=== PATIENT | female | born 1975 | race Caucasian/White ===

== ENCOUNTER 2017-05-29 09:11 | Emergency (ER) | payer OTHER ==
[~2017-05-29] VITALS: Ht 180.3 cm; Wt 140.6 kg
[2017-05-29 09:35] VITALS: BP_SYST 164
[2017-05-29] MEDS ORDERED: FLUORESCEIN SODIUM 1 MG OPHTHALMIC STRIP OP ONE (09:57)
[2017-05-29] MEDS ORDERED: BALANCED SALT IRRIG SOLN 15 ML IO ONE (09:57)
[2017-05-29] MEDS ORDERED: TETRACAINE HCL 0.5% OPHTHALMIC DROPS 15 ML OP ONE (09:57)
[2017-05-29 10:30] VITALS: BP_SYST 142
== END 2017-05-29 10:30 | disposition home or self-care (01) ==
LOC: SED 09:11
DX: S05.01XA Injury of conjunctiva and corneal abrasion without foreign body, right eye, initial encounter (principal); I10 Essential (primary) hypertension; Z90.49 Acquired absence of other specified parts of digestive tract; Z85.850 Personal history of malignant neoplasm of thyroid; X58.XXXA Exposure to other specified factors, initial encounter; Y93.89 Activity, other specified; Y92.89 Other specified places as the place of occurrence of the external cause; Y99.8 Other external cause status
CPT/HCPCS: 99283

== ENCOUNTER 2018-03-01 02:18 | Emergency (ER) | payer OTHER ==
[~2018-03-01] VITALS: Ht 180.3 cm; Wt 142.9 kg
[2018-03-01 02:40] VITALS: BP_SYST 154
[2018-03-01 03:20] VITALS: BP_SYST 147
== END 2018-03-01 03:20 | disposition home or self-care (01) ==
LOC: SED 02:18
DX: S90.812A Abrasion, left foot, initial encounter (principal); I10 Essential (primary) hypertension; X58.XXXA Exposure to other specified factors, initial encounter; Y93.89 Activity, other specified; Y92.89 Other specified places as the place of occurrence of the external cause; Y99.8 Other external cause status
CPT/HCPCS: 99282

== ENCOUNTER 2020-07-06 16:24 | Emergency (ER) | payer OTHER ==
[~2020-07-06] VITALS: Ht 180.3 cm; Wt 154.2 kg
[2020-07-06 16:25] VITALS: BP_SYST 167
[2020-07-06 18:28] LABS: PROTHROMBIN TIME 10.2 SECS (9.5-12.5)
[2020-07-06 18:44] LABS: POTASSIUM 3.8 mmol/L (3.5-5.1)
[2020-07-06 18:45] LABS: ALBUMIN 3.8 g/dL (3.4-4.8); CREATININE 1.32 mg/dL (0.55-1.30); TOTAL BILIRUBIN 0.4 mg/dL (0.0-1.0)
[2020-07-06 18:46] LABS: URIC ACID 7.8 mg/dL (2.4-7.0)
[2020-07-06 19:05] LABS: C-REACTIVE PROTEIN QUANT 10.5 mg/dL (0-0.5); CALCIUM 6.4 mg/dL (8.4-11.0)
[2020-07-06] MEDS ORDERED: IBUP-1969 PO (19:16)
[2020-07-06 19:28] VITALS: BP_SYST 167
[2020-07-06 20:01] LABS: BASOPHILS # (AUTO) 0.2 K/uL (0.0-0.2); BASOPHILS % (AUTO) 1.8 % (0.0-2.0); EOSINOPHILS # (AUTO) 0.4 K/uL (0.0-0.4); HEMATOCRIT 31.8 % (36-48); HEMOGLOBIN 10.5 g/dL (12.0-16.0); LYMPHOCYTES # (AUTO) 1.1 K/uL (1.0-5.5); LYMPHOCYTES % (AUTO) 9.6 % (20.5-51.5); MEAN CORPUSCULAR HEMOGLOBIN 27 pg (27-31); MEAN CORPUSCULAR HGB CONC 33 % (32-36); MEAN CORPUSCULAR VOLUME 81 fL (79.0-98.0); MONOCYTES # (AUTO) 0.5 K/uL (0.0-1.0); MONOCYTES % (AUTO) 4.7 % (1.7-9.3); NEUTROPHILS # (AUTO) 8.7 K/uL (1.8-7.7); NEUTROPHILS % (AUTO) 79.9 % (40.0-70.0); PLATELET COUNT (AUTO) 427 K/uL (130-430); RED BLOOD CELL COUNT(AUTO) 3.91 MIL/uL (4.2-6.2); RED CELL DISTRIBUTION WIDTH 19.2 % (9.0-15.0); WHITE BLOOD COUNT (AUTO) 10.9 K/uL (4.8-10.8)
[2020-07-06 20:36] LABS: ERYTHROCYTE SEDIMENTATION RATE 92 MM/HR (0-20)
== END 2020-07-06 19:28 | disposition home or self-care (01) ==
LOC: SED 16:24
DX: M65.28 Calcific tendinitis, other site (principal); I10 Essential (primary) hypertension; R73.9 Hyperglycemia, unspecified; Z85.3 Personal history of malignant neoplasm of breast
CPT/HCPCS: 36415; 73030; 80053; 84550-TC; 84703; 85025; 85610-TC; 85651-TC; 85730-TC; 86140; 99284

== ENCOUNTER 2020-11-24 14:20 | Emergency (ER) | payer OTHER ==
[~2020-11-24] VITALS: Ht 180.3 cm; Wt 138.3 kg
[~2020-11-24 14:20] MED LIST: IBUP-1969 PO
[2020-11-24 14:32] VITALS: BP_SYST 166
[2020-11-24 15:16] LABS: BILIRUBIN,URINE NEGATIVE (NEGATIVE); BLOOD, URINE 3+ (NEGATIVE); COLOR,URINE YELLOW (YELLOW); GLUCOSE,URINE NEGATIVE (NEGATIVE); KETONES,URINE NEGATIVE (NEGATIVE); LEUKOCYTE ESTERASE ,URINE NEGATIVE (NEGATIVE); NITRITE, URINE NEGATIVE (NEGATIVE); PROTEIN URINE 2+ (NEGATIVE); UROBILINOGEN,URINE 0.2 (0.2-1.0)
[2020-11-24 15:22] LABS: CREATININE 1.28 mg/dL (0.55-1.30); POTASSIUM 3.5 mmol/L (3.5-5.1)
[2020-11-24 15:26] LABS: BACTERIA,URINE RARE /HPF (None Seen); CLARITY/URINE SLIGHTLY HAZY (CLEAR); WBC,URINE 0-3 /HPF (0-3)
[2020-11-24 15:31] LABS: BASOPHILS # (AUTO) 0.1 K/uL (0.0-0.2); BASOPHILS % (AUTO) 0.5 % (0.0-2.0); EOSINOPHILS # (AUTO) 0.1 K/uL (0.0-0.4); EOSINOPHILS % (AUTO) 1.1 % (0.0-4.0); HEMATOCRIT 28.4 % (36-48); HEMOGLOBIN 9.4 g/dL (12.0-16.0); LYMPHOCYTES # (AUTO) 1.5 K/uL (1.0-5.5); LYMPHOCYTES % (AUTO) 11.9 % (20.5-51.5); MEAN CORPUSCULAR HEMOGLOBIN 27 pg (27-31); MEAN CORPUSCULAR HGB CONC 33 % (32-36); MEAN CORPUSCULAR VOLUME 82 fL (79.0-98.0); NEUTROPHILS # (AUTO) 9.9 K/uL (1.8-7.7); NEUTROPHILS % (AUTO) 78.5 % (40.0-70.0); PLATELET COUNT (AUTO) 391 K/uL (130-430); RED BLOOD CELL COUNT(AUTO) 3.47 MIL/uL (4.2-6.2); RED CELL DISTRIBUTION WIDTH 19.2 % (9.0-15.0); WHITE BLOOD COUNT (AUTO) 12.7 K/uL (4.8-10.8)
[2020-11-24 15:32] LABS: ALBUMIN 3.3 g/dL (3.4-4.8); TOTAL BILIRUBIN 0.5 mg/dL (0.0-1.0)
[2020-11-24 15:34] LABS: CALCIUM 6.9 mg/dL (8.4-11.0)
[2020-11-24] MEDS ORDERED: CALCIUM GLUCONATE 1 GM in NS 100 ML IV ONE (15:45)
[2020-11-24] MEDS ORDERED: CALCIUM GLUCONATE 1 GM/10 ML VIAL ONE (16:08)
[2020-11-24 17:18] VITALS: BP_SYST 156
== END 2020-11-24 17:19 | disposition home or self-care (01) ==
LOC: SED 14:20
DX: E83.51 Hypocalcemia (principal); E03.9 Hypothyroidism, unspecified; R10.30 Lower abdominal pain, unspecified; Z85.850 Personal history of malignant neoplasm of thyroid
CPT/HCPCS: 36415; 74021; 76830; 76857; 80053; 81000; 81025; 83690; 83735; 83970; 84443; 85025; 96365; 99285; J0610

== ENCOUNTER 2020-11-27 17:41 | Emergency (ER) | payer OTHER ==
[~2020-11-27] VITALS: Ht 180.3 cm; Wt 136.5 kg
[2020-11-27 18:03] VITALS: BP_SYST 157
[2020-11-27 18:51] LABS: BASOPHILS # (AUTO) 0.1 K/uL (0.0-0.2); BASOPHILS % (AUTO) 0.9 % (0.0-2.0); EOSINOPHILS # (AUTO) 0.1 K/uL (0.0-0.4); EOSINOPHILS % (AUTO) 0.8 % (0.0-4.0); HEMATOCRIT 29.4 % (36-48); HEMOGLOBIN 9.6 g/dL (12.0-16.0); LYMPHOCYTES # (AUTO) 1.4 K/uL (1.0-5.5); LYMPHOCYTES % (AUTO) 10.1 % (20.5-51.5); MEAN CORPUSCULAR HEMOGLOBIN 27 pg (27-31); MEAN CORPUSCULAR HGB CONC 33 % (32-36); MEAN CORPUSCULAR VOLUME 82 fL (79.0-98.0); MONOCYTES % (AUTO) 7.3 % (1.7-9.3); NEUTROPHILS # (AUTO) 11.2 K/uL (1.8-7.7); NEUTROPHILS % (AUTO) 80.9 % (40.0-70.0); PLATELET COUNT (AUTO) 458 K/uL (130-430); RED CELL DISTRIBUTION WIDTH 18.9 % (9.0-15.0); WHITE BLOOD COUNT (AUTO) 13.9 K/uL (4.8-10.8)
[2020-11-27 19:03] LABS: INR 1.1 (0.8-1.2); PROTHROMBIN TIME 11.2 SECS (9.5-12.5)
[2020-11-27 19:07] LABS: C-REACTIVE PROTEIN QUANT < 0.2 mg/dL (0-0.5)
[2020-11-27 19:10] LABS: ANION GAP 12 (5-15); CHLORIDE 101 mmol/L (98-107); CREATININE 1.39 mg/dL (0.55-1.30); GLUCOSE 98 mg/dL (70-99); POTASSIUM 3.5 mmol/L (3.5-5.1); SODIUM SERUM 142 mmol/L (136-145); UREA NITROGEN, BLOOD 14 mg/dL (8-21)
[2020-11-27 19:12] LABS: CALCIUM 6.6 mg/dL (8.4-11.0)
[2020-11-27 19:18] LABS: ALANINE AMINOTRANSFERASE 34 U/L (12-78); ALBUMIN 3.4 g/dL (3.4-4.8); AMYLASE 23 U/L (0-100); ASPARTATE AMINOTRANSFERASE 26 U/L (10-37); FREE T4 (FREE THYROXINE) 0.9 ng/dl (0.8-1.5); LIPASE 93 U/L (73-393); THYROID STIMULATING HORMONE 19.36 uIu/mL (0.36-3.74); TOTAL BILIRUBIN 0.7 mg/dL (0.0-1.0)
[2020-11-27 19:50] LABS: BILIRUBIN,URINE 1+ (NEGATIVE); BLOOD, URINE 3+ (NEGATIVE); CLARITY/URINE CLEAR (CLEAR); COLOR,URINE YELLOW (YELLOW); GLUCOSE,URINE NEGATIVE (NEGATIVE); KETONES,URINE 1+ (NEGATIVE); LEUKOCYTE ESTERASE ,URINE NEGATIVE (NEGATIVE); NITRITE, URINE NEGATIVE (NEGATIVE); PROTEIN URINE 2+ (NEGATIVE)
[2020-11-27 20:18] LABS: WBC,URINE 0-3 /HPF (0-3)
[2020-11-27 20:19] LABS: BACTERIA,URINE MODERATE /HPF (None Seen); CALCIUM OXALATE CRYSTALS,UR None Seen /HPF (None Seen); CALCIUM PHOSPHATE CRYSTALS,UR None Seen /HPF (None Seen); COARSE GRANULAR CASTS,URINE None Seen /LPF (None Seen); FINE GRANULAR CASTS,URINE None Seen /LPF (None Seen); HYALINE CASTS, URINE None Seen /LPF (None Seen); MUCUS,URINE None Seen /LPF (None Seen); OTHER CASTS, URINE None Seen /LPF (None Seen); OTHER CRYSTALS,URINE None Seen /HPF (None Seen); TRICHOMONAS,URINE None Seen /HPF (None Seen); TRIPLE PHOSPHATE CRYSTAL,UR None Seen /HPF (None Seen); URIC ACID CRYSTALS,URINE None Seen /HPF (None Seen); URINE AMORPHOUS PHOSPHATES None Seen /HPF (None Seen); URINE AMORPHOUS URATE None Seen /HPF (None Seen); WAXY CASTS,URINE None Seen /LPF (None Seen); YEAST,URINE None Seen /HPF (None Seen)
[2020-11-27] MEDS ORDERED: IBUP-1969 PO (21:05)
[2020-11-27] MEDS ORDERED: AMOX-423 PO (21:05)
[2020-11-27 21:12] VITALS: BP_SYST 136
== END 2020-11-27 21:12 | disposition home or self-care (01) ==
LOC: SED 17:41
DX: K57.92 Diverticulitis of intestine, part unspecified, without perforation or abscess without bleeding (principal); I10 Essential (primary) hypertension; Z79.899 Other long term (current) drug therapy
CPT/HCPCS: 36415; 76376; 80053; 81000; 81025; 82150; 83605; 83690; 84439; 84443; 84484; 84703; 85025; 85610-TC; 85730-TC; 86140; 99284

== ENCOUNTER 2020-11-29 14:02 | Emergency (ER) | payer OTHER ==
[~2020-11-29] VITALS: Ht 180.3 cm; Wt 149.7 kg
[~2020-11-29 14:02] MED LIST changes: +AMOX-423 PO
[2020-11-29 14:11] VITALS: BP_SYST 112
[2020-11-29 14:49] LABS: BASOPHILS # (AUTO) 0.1 K/uL (0.0-0.2); BASOPHILS % (AUTO) 0.8 % (0.0-2.0); EOSINOPHILS # (AUTO) 0.3 K/uL (0.0-0.4); EOSINOPHILS % (AUTO) 2.6 % (0.0-4.0); HEMATOCRIT 30.4 % (36-48); HEMOGLOBIN 10.1 g/dL (12.0-16.0); LYMPHOCYTES # (AUTO) 1.3 K/uL (1.0-5.5); LYMPHOCYTES % (AUTO) 12.1 % (20.5-51.5); MEAN CORPUSCULAR HEMOGLOBIN 27 pg (27-31); MEAN CORPUSCULAR HGB CONC 33 % (32-36); MEAN CORPUSCULAR VOLUME 81 fL (79.0-98.0); MONOCYTES # (AUTO) 0.6 K/uL (0.0-1.0); MONOCYTES % (AUTO) 5.5 % (1.7-9.3); NEUTROPHILS # (AUTO) 8.4 K/uL (1.8-7.7); PLATELET COUNT (AUTO) 457 K/uL (130-430); RED BLOOD CELL COUNT(AUTO) 3.74 MIL/uL (4.2-6.2); RED CELL DISTRIBUTION WIDTH 18.7 % (9.0-15.0); WHITE BLOOD COUNT (AUTO) 10.6 K/uL (4.8-10.8)
[2020-11-29 15:00] LABS: CREATININE 1.37 mg/dL (0.55-1.30); POTASSIUM 3.3 mmol/L (3.5-5.1)
[2020-11-29 15:04] LABS: ALBUMIN 3.5 g/dL (3.4-4.8); TOTAL BILIRUBIN 0.7 mg/dL (0.0-1.0)
[2020-11-29 15:07] LABS: CALCIUM 6.6 mg/dL (8.4-11.0)
[2020-11-29 15:13] VITALS: BP_SYST 112
[2020-11-29 15:16] LABS: C-REACTIVE PROTEIN QUANT 19.4 mg/dL (0-0.5)
== END 2020-11-29 15:13 | disposition home or self-care (01) ==
LOC: SED 14:02
DX: K57.92 Diverticulitis of intestine, part unspecified, without perforation or abscess without bleeding (principal); I10 Essential (primary) hypertension; Z79.899 Other long term (current) drug therapy
CPT/HCPCS: 36415; 80053; 83605; 83690; 85025; 86140; 99283

== ENCOUNTER 2021-05-21 12:05 | Emergency (ER) | payer MEDICAID, SELFPAY ==
[~2021-05-21] VITALS: Ht 180.3 cm; Wt 145.1 kg
[2021-05-21 12:05] VITALS: BP_SYST 160
--- NOTE | 2021-05-21 12:10 | NUR ---
Patient triaged and placed in waiting room. VSS and patient appears in no acute distress at this time. Accompanied by SELF, awaiting available bed, and MD notified of need for MSE.
--- NOTE | 2021-05-21 12:27 | NUR ---
DR MAGANA TO TRIAGE ROOM TO EVALUATE PT.
[2021-05-21 13:02] LABS: BASOPHILS # (AUTO) 0.1 K/uL (0.0-0.2); BASOPHILS % (AUTO) 0.6 % (0.0-2.0); EOSINOPHILS # (AUTO) 0.3 K/uL (0.0-0.4); EOSINOPHILS % (AUTO) 2.9 % (0.0-4.0); HEMATOCRIT 29.6 % (36-48); HEMOGLOBIN 9.8 g/dL (12.0-16.0); LYMPHOCYTES # (AUTO) 1.6 K/uL (1.0-5.5); LYMPHOCYTES % (AUTO) 15.8 % (20.5-51.5); MEAN CORPUSCULAR HEMOGLOBIN 27 pg (27-31); MEAN CORPUSCULAR HGB CONC 33 % (32-36); MEAN CORPUSCULAR VOLUME 83 fL (79.0-98.0); MONOCYTES # (AUTO) 0.5 K/uL (0.0-1.0); MONOCYTES % (AUTO) 5.3 % (1.7-9.3); NEUTROPHILS # (AUTO) 7.7 K/uL (1.8-7.7); NEUTROPHILS % (AUTO) 75.4 % (40.0-70.0); PLATELET COUNT (AUTO) 368 K/uL (130-430); RED BLOOD CELL COUNT(AUTO) 3.57 MIL/uL (4.2-6.2); RED CELL DISTRIBUTION WIDTH 19.1 % (9.0-15.0); WHITE BLOOD COUNT (AUTO) 10.2 K/uL (4.8-10.8)
[2021-05-21 13:36] LABS: ALBUMIN 3.6 g/dL (3.4-4.8); CREATININE 1.08 mg/dL (0.55-1.30); FREE T4 (FREE THYROXINE) 0.7 ng/dl (0.8-1.5); THYROID STIMULATING HORMONE 25.34 uIu/mL (0.36-3.74); TOTAL BILIRUBIN 0.4 mg/dL (0.0-1.0)
[2021-05-21 13:42] LABS: POTASSIUM 3.7 mmol/L (3.5-5.1)
[2021-05-21 13:44] LABS: CALCIUM 5.4 mg/dL (8.4-11.0)
[2021-05-21] MEDS ORDERED: IBUP-1969 PO (14:21)
[2021-05-21] MEDS ORDERED: PSEU30TA36 PO (14:21)
--- NOTE | 2021-05-21 14:40 | NUR ---
DPatient given written and verbal discharge instructions and verbalizes understanding. ER MD discussed with patient the results and treatment provided. Patient in stable condition. ID arm band removed. Rx of IBUPROFE, PSEUDOEPHEDRINE given. Patient educated on pain management and to follow up with PMD. Pain Scale 0/10. Opportunity for questions provided and answered. Medication side effect fact sheet provided.
== END 2021-05-21 14:40 | disposition home or self-care (01) ==
LOC: SED 12:05
DX: J40 Bronchitis, not specified as acute or chronic (principal); I10 Essential (primary) hypertension; Z79.899 Other long term (current) drug therapy; Z20.822 Contact with and (suspected) exposure to COVID-19
CPT/HCPCS: 36415; 80053; 84439; 84443; 85025; 99283

== ENCOUNTER 2021-12-13 13:56 | Emergency (ER) | payer MEDICAID ==
[~2021-12-13] VITALS: Ht 180.3 cm; Wt 156.0 kg
[~2021-12-13 13:56] MED LIST changes: +PSEU30TA36 PO
[2021-12-13 14:03] VITALS: BP_SYST 159
[2021-12-13 16:15] LABS: BASOPHILS # (AUTO) 0.1 K/uL (0.0-0.2); BASOPHILS % (AUTO) 0.9 % (0.0-2.0); EOSINOPHILS # (AUTO) 0.2 K/uL (0.0-0.4); EOSINOPHILS % (AUTO) 1.8 % (0.0-4.0); HEMATOCRIT 33.9 % (36-48); HEMOGLOBIN 11.4 g/dL (12.0-16.0); LYMPHOCYTES # (AUTO) 1.6 K/uL (1.0-5.5); LYMPHOCYTES % (AUTO) 17.6 % (20.5-51.5); MEAN CORPUSCULAR HEMOGLOBIN 27 pg (27-31); MEAN CORPUSCULAR HGB CONC 34 % (32-36); MEAN CORPUSCULAR VOLUME 80 fL (79.0-98.0); MONOCYTES # (AUTO) 0.6 K/uL (0.0-1.0); MONOCYTES % (AUTO) 6.8 % (1.7-9.3); NEUTROPHILS # (AUTO) 6.5 K/uL (1.8-7.7); NEUTROPHILS % (AUTO) 72.9 % (40.0-70.0); PLATELET COUNT (AUTO) 388 K/uL (130-430); RED BLOOD CELL COUNT(AUTO) 4.23 MIL/uL (4.2-6.2); RED CELL DISTRIBUTION WIDTH 18.5 % (9.0-15.0)
[2021-12-13 16:29] LABS: CREATININE 1.25 mg/dL (0.55-1.30); POTASSIUM 3.9 mmol/L (3.5-5.1)
[2021-12-13 16:52] LABS: ALBUMIN 3.5 g/dL (3.4-4.8); FREE T4 (FREE THYROXINE) 0.7 ng/dl (0.8-1.5); THYROID STIMULATING HORMONE 50.13 uIu/mL (0.36-3.74); TOTAL BILIRUBIN 0.3 mg/dL (0.0-1.0)
[2021-12-13] MEDS ORDERED: TRAM50TA2 PO (17:37)
[2021-12-13] MEDS ORDERED: IBUP-1971 PO (17:37)
[2021-12-13 17:57] VITALS: BP_SYST 140
== END 2021-12-13 17:57 | disposition home or self-care (01) ==
LOC: SED 13:56
DX: M25.562 Pain in left knee (principal); E83.51 Hypocalcemia
CPT/HCPCS: 36415; 80053; 84439; 84443; 85025; 93971; 99284

== ENCOUNTER 2023-05-21 18:07 | Emergency (ER) | payer MEDICAID ==
[~2023-05-21] VITALS: Ht 180.3 cm; Wt 151.0 kg
[~2023-05-21 18:07] MED LIST changes: +IBUP-1971 PO; +TRAM50TA2 PO
[2023-05-21 18:22] VITALS: BP_SYST 167; PULSE 69; RESP 16; TEMP 97.7; O2SAT 98
[2023-05-21] MEDS ORDERED: NACL 0.9% 1,000 ML IV ONE (19:00)
[2023-05-21 19:41] LABS: BASOPHILS % (AUTO) 0.3 % (0.0-2.0); EOSINOPHILS # (AUTO) 0.1 K/uL (0.0-0.4); EOSINOPHILS % (AUTO) 2.7 % (0.0-4.0); HEMATOCRIT 27.6 % (36-48); HEMOGLOBIN 9.1 g/dL (12.0-16.0); LYMPHOCYTES # (AUTO) 0.9 K/uL (1.0-5.5); LYMPHOCYTES % (AUTO) 23.5 % (20.5-51.5); MEAN CORPUSCULAR HEMOGLOBIN 26 pg (27-31); MEAN CORPUSCULAR HGB CONC 33 % (32-36); MEAN CORPUSCULAR VOLUME 80 fL (79.0-98.0); MONOCYTES # (AUTO) 0.6 K/uL (0.0-1.0); NEUTROPHILS # (AUTO) 2.2 K/uL (1.8-7.7); NEUTROPHILS % (AUTO) 58.5 % (40.0-70.0); PLATELET COUNT (AUTO) 328 K/uL (130-430); RED BLOOD CELL COUNT(AUTO) 3.45 MIL/uL (4.2-6.2); RED CELL DISTRIBUTION WIDTH 20.5 % (9.0-15.0); WHITE BLOOD COUNT (AUTO) 3.7 K/uL (4.8-10.8)
[2023-05-21 19:46] LABS: ANION GAP 11 (5-15); CALCIUM 8.3 mg/dL (8.4-11.0); CARBON DIOXIDE 25 mmol/L (23-29); CHLORIDE 100 mmol/L (98-107); GFR AFRICAN AMERICAN 61 mL/min (>90); GLUCOSE 131 mg/dL (74-106); POTASSIUM 3.6 mmol/L (3.5-5.1); SODIUM SERUM 136 mmol/L (136-145); UREA NITROGEN, BLOOD 21 mg/dL (8-21)
[2023-05-21 19:48] LABS: GFR NON AFRICAN-AMERICAN 51 mL/min (>90)
[2023-05-21 19:59] LABS: ALANINE AMINOTRANSFERASE 33 U/L (12-78); ALBUMIN 3.2 g/dL (3.4-4.8); ASPARTATE AMINOTRANSFERASE 16 U/L (10-37); THYROID STIMULATING HORMONE 0.78 uIu/mL (0.34-4.82); TOTAL BILIRUBIN 0.3 mg/dL (0.0-1.0); TOTAL PROTEIN, SERUM 7.3 g/dL (6.4-8.3)
[2023-05-22 02:33] VITALS: BP_SYST 122; PULSE 84; RESP 18; TEMP 98.1; O2SAT 98
== END 2023-05-22 02:33 | disposition home or self-care (01) ==
LOC: SED 18:07
DX: R06.02 Shortness of breath (principal); R07.89 Other chest pain; I10 Essential (primary) hypertension; Z85.3 Personal history of malignant neoplasm of breast; Z85.850 Personal history of malignant neoplasm of thyroid; Z79.899 Other long term (current) drug therapy
CPT/HCPCS: 99285; 96360; 71275; 80053; 83880; 84443; 85025; 84484; 36415; 93005; 76376; J7030

== ENCOUNTER 2024-03-19 09:09 | Emergency (ER) | payer MEDICAID ==
[~2024-03-19] VITALS: Ht 180.3 cm; Wt 148.3 kg
[2024-03-19 09:12] VITALS: BP_SYST 130; PULSE 112; RESP 20; TEMP 96; O2SAT 96
[2024-03-19 09:55] LABS: BASOPHILS # (AUTO) 0.1 K/uL (0.0-0.2); BASOPHILS % (AUTO) 0.9 % (0.0-2.0); EOSINOPHILS # (AUTO) 0.3 K/uL (0.0-0.4); EOSINOPHILS % (AUTO) 4.3 % (0.0-4.0); HEMATOCRIT 35.4 % (36-48); HEMOGLOBIN 11.7 g/dL (12.0-16.0); LYMPHOCYTES # (AUTO) 0.7 K/uL (1.0-5.5); MEAN CORPUSCULAR HEMOGLOBIN 27 pg (27-31); MEAN CORPUSCULAR HGB CONC 33 % (32-36); MEAN CORPUSCULAR VOLUME 82 fL (79.0-98.0); MONOCYTES # (AUTO) 0.7 K/uL (0.0-1.0); MONOCYTES % (AUTO) 10.2 % (1.7-9.3); NEUTROPHILS # (AUTO) 4.8 K/uL (1.8-7.7); NEUTROPHILS % (AUTO) 73.6 % (40.0-70.0); PLATELET COUNT (AUTO) 328 K/uL (130-430); RED CELL DISTRIBUTION WIDTH 18.6 % (9.0-15.0); WHITE BLOOD COUNT (AUTO) 6.5 K/uL (4.8-10.8)
[2024-03-19 09:57] LABS: INFLUENZA TYPE A Negative (NEGATIVE); INFLUENZA TYPE B NEGATIVE (NEGATIVE)
[2024-03-19 10:21] LABS: ALANINE AMINOTRANSFERASE 29 U/L (12-78); ALBUMIN 3.5 g/dL (3.4-4.8); ANION GAP 9 (5-15); ASPARTATE AMINOTRANSFERASE 27 U/L (10-37); CALCIUM 8.5 mg/dL (8.4-11.0); CARBON DIOXIDE 28 mmol/L (23-29); CHLORIDE 101 mmol/L (98-107); CREATININE 1.56 mg/dL (0.55-1.30); GFR AFRICAN AMERICAN 45 mL/min (>90); GLUCOSE 199 mg/dL (74-106); POTASSIUM 4.4 mmol/L (3.5-5.1); SODIUM SERUM 138 mmol/L (136-145); TOTAL BILIRUBIN 0.7 mg/dL (0.0-1.0); TOTAL PROTEIN, SERUM 8.5 g/dL (6.4-8.3); UREA NITROGEN, BLOOD 20 mg/dL (8-21)
[2024-03-19 10:23] LABS: GFR NON AFRICAN-AMERICAN 37 mL/min (>90)
[2024-03-19 10:24] LABS: BILIRUBIN,DIRECT 0.2 mg/dL (0.0-0.3)
[2024-03-19] MEDS: NS 1000 ML IV.SOLN IV ONE (11:11)
[2024-03-19] MEDS ORDERED: PIPERACILLIN/TAZOBACTAM 4.5 GM/VIAL (ZOSYN) IV ONE (11:14)
[2024-03-19] MEDS: PIPERACILLIN/TAZO 4.5 GM in NS 100 ML IV ONE (11:28)
[2024-03-19] MEDS ORDERED: NIRM1TAB9 PO (12:22)
[2024-03-19 12:39] VITALS: BP_SYST 151; PULSE 102; RESP 16; TEMP 98.2; O2SAT 96
== END 2024-03-19 12:39 | disposition home or self-care (01) ==
LOC: SED 09:09
DX: U07.1 COVID-19 (principal); I10 Essential (primary) hypertension; E89.0 Postprocedural hypothyroidism; Z85.850 Personal history of malignant neoplasm of thyroid; Z85.3 Personal history of malignant neoplasm of breast; Z79.899 Other long term (current) drug therapy; Z79.2 Long term (current) use of antibiotics
CPT/HCPCS: 99285; 96365; 71045; 87426; 80076; 80048; 83880; 85025; 85379; 87040; 84484; 36415; 93005; 83605; 87804 ×2; J2543

== ENCOUNTER 2024-03-22 13:06 | Inpatient (IN) | payer MEDICAID ==
[~2024-03-22] VITALS: Ht 167.6 cm; Wt 148.0 kg
[~2024-03-22 13:06] MED LIST changes: +NIRM1TAB9 PO
[2024-03-22 13:28] VITALS: BP_SYST 178; PULSE 116; RESP 19; TEMP 99; O2SAT 99
[2024-03-22 14:03] LABS: BASOPHILS # (AUTO) 0.1 K/uL (0.0-0.2); BASOPHILS % (AUTO) 1.1 % (0.0-2.0); EOSINOPHILS # (AUTO) 0.3 K/uL (0.0-0.4); EOSINOPHILS % (AUTO) 3.4 % (0.0-4.0); HEMATOCRIT 36.6 % (36-48); HEMOGLOBIN 11.9 g/dL (12.0-16.0); LYMPHOCYTES # (AUTO) 1.1 K/uL (1.0-5.5); LYMPHOCYTES % (AUTO) 13.9 % (20.5-51.5); MEAN CORPUSCULAR HEMOGLOBIN 27 pg (27-31); MEAN CORPUSCULAR HGB CONC 33 % (32-36); MEAN CORPUSCULAR VOLUME 82 fL (79.0-98.0); MONOCYTES # (AUTO) 0.4 K/uL (0.0-1.0); MONOCYTES % (AUTO) 5.5 % (1.7-9.3); NEUTROPHILS # (AUTO) 6.2 K/uL (1.8-7.7); NEUTROPHILS % (AUTO) 76.1 % (40.0-70.0); PLATELET COUNT (AUTO) 355 K/uL (130-430); RED BLOOD CELL COUNT(AUTO) 4.47 MIL/uL (4.2-6.2); RED CELL DISTRIBUTION WIDTH 18.6 % (9.0-15.0); WHITE BLOOD COUNT (AUTO) 8.1 K/uL (4.8-10.8)
[2024-03-22 14:20] LABS: CALCIUM 8.9 mg/dL (8.4-11.0); CREATININE 1.4 mg/dL (0.55-1.30); POTASSIUM 3.9 mmol/L (3.5-5.1)
[2024-03-22] MEDS: BENZONATATE 100 MG CAPSULE (TESSALON) PO ONE (14:37)
[2024-03-22] MEDS: IBUPROFEN 800 MG TABLET PO ONE (14:37)
[2024-03-22] MEDS ORDERED: LEVO150T8 PO (17:14)
[2024-03-22] MEDS ORDERED: CALC0.5C11 PO (17:14)
[2024-03-22] MEDS ORDERED: LOSA100T24 PO (17:14)
[2024-03-22] MEDS ORDERED: ERGO1250 PO (17:14)
[2024-03-22] MEDS ORDERED: TAMO20TA4 (17:16)
[2024-03-22] MEDS: NACL 0.9% 1,000 ML IV ONE (17:34)
[2024-03-22] MEDS ORDERED: PIPERACILLIN/TAZOBACTAM 3.375 GM/VIAL (ZOSYN) IV ONE (17:54)
[2024-03-22] MEDS: PIPERACILLIN/TAZO 3.375 GM in NS 50 ML IV ONE (17:55)
[2024-03-22] MEDS: hydrALAZINE HCL 25 MG TABLET PO ONE (18:34)
[2024-03-22] MEDS: hydrALAZINE HCL 25 MG TABLET ONE (19:33)
[2024-03-22] MEDS ORDERED: IBUPROFEN 800 MG TABLET PO PRN (20:15)
[2024-03-22] MEDS ORDERED: ONDANSETRON HCL 4 MG/2 ML VIAL IVP PRN (20:15)
[2024-03-22] MEDS ORDERED: IPRATROPIUM BROM 0.5 MG/2.5 ML VIAL.NEB (ATROVENT) INH PRN (20:15)
[2024-03-22] MEDS ORDERED: ALBUTEROL SULFATE 0.083% 2.5 MG/3 ML VIAL.NEB INH PRN (20:15)
[2024-03-22] MEDS ORDERED: IBUPROFEN 600 MG TABLET PO PRN (20:15)
[2024-03-22 21:30] VITALS: O2SAT 94
[2024-03-22] MEDS: LOSARTAN POTASSIUM 50 MG TABLET (COZAAR) PO SCH (21:52)
[2024-03-22] MEDS: PSEUDOEPHEDRINE HCL 30 MG TABLET PO SCH (22:00)
[2024-03-22] MEDS ORDERED: AZITHROMYCIN 500 MG/VIAL (ZITHROMAX) IV ONE (22:32)
[2024-03-22] MEDS ORDERED: cefTRIAXone 1 GM IVPB PREMIX 50 ML IV ONE (22:33)
[2024-03-22] MEDS: AZITHROMYCIN 500 MG in NS 250 ML IV SCH (22:52)
[2024-03-22] MEDS: NORMAL SALINE 5 ML DISP.SYRIN IVF SCH (22:53)
[2024-03-22] MEDS: cefTRIAXone 1 GM IVPB PREMIX 50 ML IV SCH (22:53)
[2024-03-22 23:21] VITALS: PULSE 99; O2SAT 98
[2024-03-23] VITALS: BP_SYST 150; PULSE 100; RESP 18; TEMP 97.8; O2SAT 95
[2024-03-23 07:42] LABS: BASOPHILS # (AUTO) 0.1 K/uL (0.0-0.2); BASOPHILS % (AUTO) 0.7 % (0.0-2.0); EOSINOPHILS # (AUTO) 0.3 K/uL (0.0-0.4); EOSINOPHILS % (AUTO) 4.6 % (0.0-4.0); HEMOGLOBIN 10.5 g/dL (12.0-16.0); LYMPHOCYTES # (AUTO) 1.2 K/uL (1.0-5.5); LYMPHOCYTES % (AUTO) 17.7 % (20.5-51.5); MEAN CORPUSCULAR HEMOGLOBIN 27 pg (27-31); MEAN CORPUSCULAR HGB CONC 31 % (32-36); MEAN CORPUSCULAR VOLUME 86 fL (79.0-98.0); MONOCYTES # (AUTO) 0.5 K/uL (0.0-1.0); MONOCYTES % (AUTO) 7.8 % (1.7-9.3); NEUTROPHILS # (AUTO) 4.8 K/uL (1.8-7.7); NEUTROPHILS % (AUTO) 69.2 % (40.0-70.0); PLATELET COUNT (AUTO) 278 K/uL (130-430); RED BLOOD CELL COUNT(AUTO) 3.96 MIL/uL (4.2-6.2); RED CELL DISTRIBUTION WIDTH 18.9 % (9.0-15.0); WHITE BLOOD COUNT (AUTO) 6.9 K/uL (4.8-10.8)
[2024-03-23 07:45] VITALS: BP_SYST 143; PULSE 76; RESP 18; TEMP 99.2; O2SAT 99
[2024-03-23 07:45] LABS: ALBUMIN 3.2 g/dL (3.4-4.8); CALCIUM 8.1 mg/dL (8.4-11.0); CREATININE 1.36 mg/dL (0.55-1.30); TOTAL BILIRUBIN 0.3 mg/dL (0.0-1.0); TOTAL PROTEIN, SERUM 7.8 g/dL (6.4-8.3)
[2024-03-23] MEDS: LEVOTHYROXINE SODIUM 0.15 MG TABLET PO SCH (10:21)
[2024-03-23 11:31] VITALS: BP_SYST 135; PULSE 80; RESP 20; TEMP 98.4; O2SAT 99
[2024-03-23 15:30] VITALS: BP_SYST 128; BP_SYST 135; PULSE 80; PULSE 86; RESP 18; RESP 20; TEMP 98.7; O2SAT 99
[2024-03-23 20:00] VITALS: BP_SYST 149; PULSE 99; RESP 18; TEMP 98.1; O2SAT 98
[2024-03-24] VITALS: BP_SYST 133; PULSE 80; RESP 18; TEMP 98; O2SAT 98
[2024-03-24 06:56] LABS: BASOPHILS % (AUTO) 0.4 % (0.0-2.0); EOSINOPHILS # (AUTO) 0.3 K/uL (0.0-0.4); EOSINOPHILS % (AUTO) 3.8 % (0.0-4.0); HEMATOCRIT 32.3 % (36-48); HEMOGLOBIN 10.6 g/dL (12.0-16.0); LYMPHOCYTES # (AUTO) 1.1 K/uL (1.0-5.5); LYMPHOCYTES % (AUTO) 15.6 % (20.5-51.5); MEAN CORPUSCULAR HEMOGLOBIN 27 pg (27-31); MEAN CORPUSCULAR HGB CONC 33 % (32-36); MEAN CORPUSCULAR VOLUME 82 fL (79.0-98.0); MONOCYTES # (AUTO) 0.5 K/uL (0.0-1.0); MONOCYTES % (AUTO) 6.4 % (1.7-9.3); NEUTROPHILS # (AUTO) 5.4 K/uL (1.8-7.7); NEUTROPHILS % (AUTO) 73.8 % (40.0-70.0); PLATELET COUNT (AUTO) 324 K/uL (130-430); RED BLOOD CELL COUNT(AUTO) 3.94 MIL/uL (4.2-6.2); RED CELL DISTRIBUTION WIDTH 18.2 % (9.0-15.0); WHITE BLOOD COUNT (AUTO) 7.4 K/uL (4.8-10.8)
[2024-03-24 07:32] LABS: CALCIUM 7.7 mg/dL (8.4-11.0); CREATININE 1.26 mg/dL (0.55-1.30); POTASSIUM 3.7 mmol/L (3.5-5.1); TOTAL BILIRUBIN 0.4 mg/dL (0.0-1.0); TOTAL PROTEIN, SERUM 7.5 g/dL (6.4-8.3)
[2024-03-24 08:04] VITALS: BP_SYST 114; PULSE 86; RESP 18; TEMP 97.6; O2SAT 96
[2024-03-24 10:07] VITALS: O2SAT 96
[2024-03-24] MEDS ORDERED: NON-FORMULARY MEDICATION (Ergocalciferol (Vitamin D2) (Vitamin D2) 1 CAP) PO SCH (11:00)
[2024-03-24 11:42] LABS: BLOOD GAS PCO2 36.5 mmHg (32.0-45.0); BLOOD GAS PH 7.468 (7.350-7.450); BLOOD GAS PO2 73.6 mmHg (83.0-108.0)
[2024-03-24 11:43] LABS: ABG O2 SAT% ESTIMATE 95.7 % (94.0-98.0); BLOOD GAS BASE EXCESS 2.3 mmol/L (-2.0-3.0); BLOOD GAS HCO3 25.8 mmol/L (21.0-28.0)
[2024-03-24 12:54] VITALS: BP_SYST 134; PULSE 100; RESP 18; TEMP 97.9; O2SAT 97
[2024-03-24 16:00] VITALS: BP_SYST 154; PULSE 111; RESP 17; TEMP 97.8; O2SAT 95
[2024-03-24 20:00] VITALS: BP_SYST 143; PULSE 93; RESP 18; TEMP 98.1; O2SAT 95; O2SAT 96
[2024-03-24] MEDS: CALCIUM 500 MG/TAB PO SCH (21:27)
[2024-03-24] MEDS: traMADol HCL HCL 50 MG TABLET (ULTRAM) PO PRN (21:29)
[2024-03-24] MEDS: calcitrioL 0.25 MCG CAPSULE PO SCH (21:29)
[2024-03-25] VITALS (8 sets, daily range): BP systolic 133–151; PULSE 94–115; RESP 16–22; TEMP 97.1–97.9; O2SAT 95–98
[2024-03-25 08:06] LABS: BASOPHILS % (AUTO) 0.6 % (0.0-2.0); EOSINOPHILS # (AUTO) 0.2 K/uL (0.0-0.4); HEMATOCRIT 34.3 % (36-48); HEMOGLOBIN 11.3 g/dL (12.0-16.0); LYMPHOCYTES # (AUTO) 1.2 K/uL (1.0-5.5); LYMPHOCYTES % (AUTO) 14.6 % (20.5-51.5); MEAN CORPUSCULAR HEMOGLOBIN 27 pg (27-31); MEAN CORPUSCULAR HGB CONC 33 % (32-36); MEAN CORPUSCULAR VOLUME 82 fL (79.0-98.0); MONOCYTES # (AUTO) 0.6 K/uL (0.0-1.0); NEUTROPHILS # (AUTO) 5.9 K/uL (1.8-7.7); NEUTROPHILS % (AUTO) 74.8 % (40.0-70.0); PLATELET COUNT (AUTO) 322 K/uL (130-430); RED BLOOD CELL COUNT(AUTO) 4.18 MIL/uL (4.2-6.2); RED CELL DISTRIBUTION WIDTH 18.1 % (9.0-15.0); WHITE BLOOD COUNT (AUTO) 7.9 K/uL (4.8-10.8)
[2024-03-25 08:37] LABS: CALCIUM 8.6 mg/dL (8.4-11.0); CREATININE 1.22 mg/dL (0.55-1.30); POTASSIUM 3.9 mmol/L (3.5-5.1)
[2024-03-25 10:49] LABS: ABG O2 SAT% ESTIMATE 97.2 % (94.0-98.0); BLOOD GAS BASE EXCESS 1.1 mmol/L (-2.0-3.0); BLOOD GAS HCO3 24.5 mmol/L (21.0-28.0); BLOOD GAS PCO2 34.8 mmHg (32.0-45.0); BLOOD GAS PH 7.466 (7.350-7.450); BLOOD GAS PO2 88.5 mmHg (83.0-108.0)
[2024-03-25] MEDS: ENOXAPARIN SODIUM 30 MG/0.3 ML SYRINGE SUBCUT ONE (11:35)
[2024-03-26 01:19] VITALS: BP_SYST 124; PULSE 95; RESP 17; TEMP 96.3; O2SAT 93
[2024-03-26 04:00] VITALS: BP_SYST 75; PULSE 99; RESP 18; TEMP 97.4; O2SAT 97
[2024-03-26 07:06] LABS: BASOPHILS # (AUTO) 0.1 K/uL (0.0-0.2); BASOPHILS % (AUTO) 0.8 % (0.0-2.0); EOSINOPHILS # (AUTO) 0.3 K/uL (0.0-0.4); EOSINOPHILS % (AUTO) 3.7 % (0.0-4.0); HEMATOCRIT 34.7 % (36-48); HEMOGLOBIN 11.3 g/dL (12.0-16.0); LYMPHOCYTES # (AUTO) 1.2 K/uL (1.0-5.5); LYMPHOCYTES % (AUTO) 17.5 % (20.5-51.5); MEAN CORPUSCULAR HEMOGLOBIN 27 pg (27-31); MEAN CORPUSCULAR HGB CONC 33 % (32-36); MEAN CORPUSCULAR VOLUME 83 fL (79.0-98.0); MONOCYTES # (AUTO) 0.5 K/uL (0.0-1.0); MONOCYTES % (AUTO) 7.4 % (1.7-9.3); NEUTROPHILS % (AUTO) 70.6 % (40.0-70.0); PLATELET COUNT (AUTO) 338 K/uL (130-430); RED CELL DISTRIBUTION WIDTH 17.9 % (9.0-15.0); WHITE BLOOD COUNT (AUTO) 7.1 K/uL (4.8-10.8)
[2024-03-26 08:12] LABS: ALBUMIN 3.2 g/dL (3.4-4.8); CALCIUM 8.8 mg/dL (8.4-11.0); CREATININE 1.35 mg/dL (0.55-1.30); POTASSIUM 3.7 mmol/L (3.5-5.1); TOTAL BILIRUBIN 0.3 mg/dL (0.0-1.0); TOTAL PROTEIN, SERUM 7.8 g/dL (6.4-8.3)
[2024-03-26 08:15] VITALS: BP_SYST 147; PULSE 105; RESP 18; TEMP 98.7; O2SAT 97
[2024-03-26 08:30] VITALS: O2SAT 97
[2024-03-26] MEDS: ENOXAPARIN SODIUM 30 MG/0.3 ML SYRINGE SUBCUT SCH (08:53)
[2024-03-26] MEDS ORDERED: ENOXAPARIN SODIUM 30 MG/0.3 ML SYRINGE SUBCUT SCH (09:00)
[2024-03-26 20:00] VITALS: BP_SYST 157; PULSE 76; RESP 20; TEMP 96.7; O2SAT 96
[2024-03-27 01:15] VITALS: RESP 20; TEMP 97; O2SAT 96
[2024-03-27 07:59] LABS: ALBUMIN 3.1 g/dL (3.4-4.8); CALCIUM 9.7 mg/dL (8.4-11.0); CREATININE 1.22 mg/dL (0.55-1.30); POTASSIUM 4.1 mmol/L (3.5-5.1); TOTAL BILIRUBIN 0.4 mg/dL (0.0-1.0); TOTAL PROTEIN, SERUM 7.7 g/dL (6.4-8.3)
[2024-03-27 08:00] VITALS: BP_SYST 112; PULSE 78; RESP 18; TEMP 98.1; O2SAT 95
[2024-03-27 08:55] VITALS: BP_SYST 114; PULSE 106; RESP 18; TEMP 97.4; O2SAT 95
[2024-03-27] MEDS ORDERED: AMOX-423 PO (11:36)
== END 2024-03-27 10:00 | disposition home health service (06) | DRG 137 ==
LOC: SED 13:06 → STU 17:03
PROVIDERS: ADMIT Specialist; ATTEND Specialist
PROC: XW033E5 Introduction of Remdesivir Anti-infective into Peripheral Vein, Percutaneous Approach, New Technology Group 5 (ICD-10-PCS; principal; 2024-03-23)
DX: U07.1 COVID-19 (principal); R65.11 Systemic inflammatory response syndrome (SIRS) of non-infectious origin with acute organ dysfunction; J12.82 Pneumonia due to coronavirus disease 2019; C50.911 Malignant neoplasm of unspecified site of right female breast; I10 Essential (primary) hypertension; E03.9 Hypothyroidism, unspecified; R06.89 Other abnormalities of breathing; E78.5 Hyperlipidemia, unspecified
CPT/HCPCS: 36415; 36600; 71045; 71250-TC; 80048; 80053; 82803; 83605; 85025; 85379; 87040; 94070; 94760; 96365; 99285; G0378; J0456; J0696; J1650; J2543; J7050